=== PATIENT | male | born 1970 | race Caucasian/White ===

== ENCOUNTER 2020-01-02 22:37 | Emergency (ER) | payer OTHER, SELFPAY ==
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
[2020-01-02 22:48] VITALS: BP 133/98; PULSE 95; RESP 25; TEMP 36.6; O2SAT 99
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
[2020-01-02 23:20] VITALS: BP 128/93; PULSE 108; RESP 23; O2SAT 99
== END 2020-01-02 23:21 | disposition short-term general hospital (02) ==
PROVIDERS: Emergency Provider Emergency Medicine; PCP Family Medicine Adolescent Medicine
DX: S06.0X9A Concussion with loss of consciousness of unspecified duration, initial encounter (principal); S30.1XXA Contusion of abdominal wall, initial encounter; V43.52XA Car driver injured in collision with other type car in traffic accident, initial encounter; W22.10XA Striking against or struck by unspecified automobile airbag, initial encounter
CPT/HCPCS: 71045; 99285

== ENCOUNTER 2024-11-03 08:06 | Outpatient (CLI) | payer OTHER, SELFPAY ==
--- NOTE | ~2024-11-03 | US_ITS ---
Limited Abdominal Sonogram: Real-time sonographic imaging of the right upper quadrant was performed. Clinical History: Abnormal LFTs Findings: The liver appears normal with no evidence of mass lesion or bile duct dilatation. Main por isa vein demonstrates normal direction of flow. The gallbladder is well distended, and measures 5 mm gallbladder wall polyp. The common bile duct measures 4 mm. The visualized pancreas, aorta, and IVC are unremarkable. Impression: 5 mm gallbladder wall polyp. Reviewed, dictated and finalized at location . Impression: 5 mm gallbladder wall polyp.
== END 2024-11-03 08:07 | disposition home or self-care (01) ==
LOC: GOSHIMG 08:08
PROVIDERS: PCP Physician Assistant; Visit Provider Physician Assistant
DX: K82.4 Cholesterolosis of gallbladder (principal); R79.89 Other specified abnormal findings of blood chemistry
CPT/HCPCS: 76705